=== PATIENT | female | born 1995 | race Caucasian/White ===

== ENCOUNTER 2022-03-13 23:46 | Emergency (ER) | payer MEDICAID, SELFPAY ==
[2022-03-13 23:59] VITALS: BP 125/78; PULSE 84; RESP 18; TEMP 36.9; O2SAT 99; BMI 34.9
[2022-03-14] VITALS: RESP 18; O2SAT 98
[2022-03-14 00:53] VITALS: BP 132/81; PULSE 89; RESP 18; TEMP 36.7; O2SAT 99
[2022-03-14 00:54] VITALS: BP 132/81; PULSE 89; RESP 18; TEMP 36.7
--- NOTE | 2022-03-14 00:56 | ED_ITS ---
HPI - General Adult General Chief complaint: Unspecified Complaint, Adult Stated complaint: cyst under right armpit and its growing. Time Seen by Provider: 03/13/22 23:49 Source: patient Mode of arrival: ambulatory Limitations: no limitations History of Present Illness HPI narrative: 27-year-old female with multiple prior similar episodes present to the emergency department with painful swelling in her right axilla for the past 4 days. Similar lesion a month ago. Has had multiple previous lesions incised and drained in the past. Does not have a formal diagnosis of hidradenitis super T even has never been on autoimmune therapy or extended antibiotic therapy. She states that she was tested for MRSA prior to a within the last couple of years and this was negative. She notes no fever, no systemic symptoms of illness. She is otherwise feeling well. She has not tried to drain this lesion nor has she been on antibiotics recently. She is not immunosuppressed. She has no other affected areas currently. She has had lesions in the inguinal and axillary regions both in the past. No breast swelling. She is not breast- feeding. Past medical history is notable for anxiety, on prescription medications for this. Reviewed. She reports her allergy is to buffered lidocaine but on specific questioning it sounds more like she is allergic to chlorhexidine or a similar skin prep. No recent surgeries. Social history noncontributory. ROS is notable for the generalized in skin symptoms as above, otherwise denies times 12 systems. Related Data Home Medications Medication Instructions Recorded Confirmed citalopram 20 mg tablet (Celexa) 10 mg PO DAILY 03/14/22 03/14/22 trazodone 100 mg tablet 100 mg PO QHS PRN 03/14/22 03/14/22 Allergies Allergy/AdvReac Type Severity Reaction Status Date / Time sodium bicarbonate Allergy Mild Redness of Verified 03/14/22 00:15 Skin PFSH PFS Medical History Anxiety Depression Surgical History History of delivery Social History Smoking Status: Never smoker Second hand tobacco smoke exposure: No How often do you have a drink containing alcohol: never How often do you have six or more drinks on one occasion: Never AUDIT-C Alcohol total score: 0 Non-prescribed substance use: denies use Exam Const: Vital Signs, click to edit/add: Vital Signs - 24 hr 03/13/22 23:59 03/14/22 00:00 03/14/22 00:53 Temperature 98.4 F 98.0 F Pulse Rate [Right Pulse Oximeter] 84 89 Respiratory Rate 18 18 Respiratory Rate [ Right Arm] 18 Blood Pressure [Ri ght Upper Arm] 125/78 132/81 Pulse Oximetry 99 99 Oxygen Delivery Me thod Room Air Room Air 03/14/22 00:54 Temperature 98.0 F Pulse Rate [Right Pulse Oximeter] 89 Respiratory Rate 18 Respiratory Rate [ Right Arm] Blood Pressure [Ri ght Upper Arm] 132/81 Pulse Oximetry Oxygen Delivery Me thod Common normals: no apparent distress General appearance: cooperative HENMT: Common normals: normocephalic Head and scalp: normocephalic Meliza th: oral and palatal mucosa normal Eye: Other: Normal visual gaze and tracking. Resp: Common normals: normal respiratory effort Effort & inspection: able to speak in complete sentences Cardio: Common normals: regular rate, regular rhythm, S1 normal heart sound and S2 normal heart sound Rate: regular rate Rhythm: regular rhythm Heart sounds: S1 normal and S2 normal Extremity: Other: Right arm with normal range of motion. In the axillary region there is a 4 cm x 4 cm erythematous raised area with a 2-1/2 cm central fluctuant area exquisitely tender. No associated lymphadenopathy initially appreciated. Right shoulder has normal range of motion, right hand has normal range of motion. Left axilla is normal in appearance with the exception of scarring from what appears to be prior similar lesions. There are multiple similar scars in the right axilla as well. Skin: Narrative: Other than the axillary scars and red tender lesion as described above, no other rashes or signs of trauma or injury. Course Course Hospital Course: Procedure: Incision and drainage. Verbal consent was obtained right axilla was cleansed with alcohol wipe and then injected with 3 mL of 1% lidocaine with epinephrine with excellent anesthesia and blanching. Area was cleansed with iodine because I suspected that she was allergic to the chlorhexidine. This was then incised with a 15 blade and expressed about 50 mL of significantly purulence slightly sanguinous exudate. Gentle expression completely drained the wound, wound culture was also collected. She had immediate relief. I was able to palpate some inflamed lymph nodes once the abscess had been reduced. Otherwise all fluctuance relieved. This was covered with antibiotic ointment and a gauze pad and 2 Band-Aids. For mL opening his left to promote drainage. Vital Signs Vital signs: Initial Vital Signs Temperature 98.4 F 03/13/22 23:59 Temperature Source Temporal Artery Scan 03/13/22 23:59 Pulse Rate 84 03/13/22 23:59 Respiratory Rate 18 03/13/22 23:59 Blood Pressure 125/78 03/13/22 23:59 Blood Pressure Mean 93 03/13/22 23:59 Blood Pressure Position Sitting 03/13/22 23:59 Pulse Oximetry 99 03/13/22 23:59 Oxygen Delivery Method 03/13/22 23:59 Vital Signs Temperature 98.4 F 03/13/22 23:59 Pulse Rate 84 03/13/22 23:59 Respiratory Rate 18 03/13/22 23:59 Blood Pressure 125/78 03/13/22 23:59 Pulse Oximetry 99 03/13/22 23:59 Oxygen Delivery Method 03/13/22 23:59 Temperature 98.0 F 03/14/22 00:54 Pulse Rate 89 03/14/22 00:54 Respiratory Rate 18 03/14/22 00:54 Blood Pressure 132/81 03/14/22 00:54 Pulse Oximetry 99 03/14/22 00:53 Oxygen Delivery Method 03/14/22 00:53 Medical Decision Making MDM Narrative Medical decision making narrative: Counseled on abscess, discussed underlying concerns with hidradenitis. Encouraged to primary care dermatology follow-up to discuss further since it seems as though she is getting multiple lesions within a short period of time. Patient will begin doxycycline 100 mg b.i.d. for the next 7 days and follow up if not markedly improved in 48 hours. Alarm symptoms reviewed prior to discharge. She verbalizes understanding and agreement. Be notified only if wound culture is not as expected. Leave bandage in place for 24 hours, then may shower as usual, cleansing the area gently and replacing bandage daily for the next 3 days. Discharge Plan Discharge Clinical Impression: Abscess of axilla, right Patient Disposition: Home, Self-Care Condition: Improved Instructions: Abscess Incision and Drainage (DC) Additional Instructions: The abscess in her right armpit was drained. I will send this for culture. Mo st of the time the most important treatment is drainage of the abscess. I put you on an antibiotic called doxycycline. He will take this twice daily for the next week. The culture will tell me if we need a different antibiotics. As we discussed, you might consider seeing a senior licensing manager about these abscesses, sometimes they are hidradenitis. Sometimes, people respond to an extended course of oral antibiotics or treatment for an autoimmune process to prevent these. You would start with your primary care provider. Your likely to have continued drainage. I have left the wound open so that it can continue to drain if needed. The pain should improve markedly but it is okay to take Tylenol and/or ibuprofen as needed. If it swells again, apply warm compress, as this will help promote drainage again. Things should improve markedly over the next few days but will take several weeks to heal completely and it will leave a scar. Activity Level: No Restrictions Discharge Diet: Regular Prescriptions: No Action citalopram [Celexa] 20 mg tablet 10 mg PO DAILY trazodone 100 mg tablet 100 mg PO QHS PRN Stand Alone Forms: [employer] Info Instructions
== END 2022-03-14 01:27 | disposition home or self-care (01) ==
PROVIDERS: Emergency Provider Family Medicine
DX: L02.411 Cutaneous abscess of right axilla (principal)
CPT/HCPCS: 10060; 87070; 99283